=== PATIENT | male | born 1995 ===

== ENCOUNTER 2023-02-04 12:34 | Emergency (ER) | payer BC, SELFPAY ==
[2023-02-04 12:44] VITALS: BP 122/80; PULSE 73; RESP 18; TEMP 36.1; O2SAT 99; BMI 25.0
--- NOTE | 2023-02-04 13:10 | ED.BACK ---
HPI - Back Pain/Injury General Time Seen by Provider: 13:11 Date Seen: 02/04/23 Chief Complaint: Back Injury/Pain Stated Complaint: lower back pain Time Seen by Provider: 02/04/23 13:02 Source: patient and RN notes reviewed Mode of arrival: ambulatory Limitations: no limitations History of Present Illness HPI Narrative: Patient is coming in with low back pain that was worse yesterday after lifting at work yesterday. Pain is not radiating down into either leg, no numbness/tingling in legs. Has history of trauma about age 17 when he fell out of a truck, has had some low back pain intermittently since then. Did try ibuprofen without relief. No fevers, no chronic medical conditions. Hurts in the middle and radiates out to both sides of upper to mid lumbar area. Position changes hurt. Related Data Previous Rx's Medication Instructions Recorded cyclobenzaprine 10 mg tablet 10 mg PO TID PRN muscle spasm #30 02/04/23 tabs naproxen 500 mg tablet 500 mg PO BID #20 tabs 02/04/23 Allergies Allergy/AdvReac Type Severity Reaction Status Date / Time No Known Drug Allergies Allergy Verified 02/04/23 12:43 PFSH PFSH Social History Smoking Status: Former smoker Do you use any of these nicotine containing products: None Second hand tobacco smoke exposure: No How often do you have a drink containing alcohol: never How often do you have six or more drinks on one occasion: Never AUDIT-C Alcohol total score: 0 Non-prescribed substance use: denies use service: No Exam Const: Vital Signs, click to edit/add: Vital Signs - 24 hr 02/04/23 12:44 Temperature 97 F L Pulse Rate [Pulse Oximeter] 73 Respiratory Rate 18 Blood Pressure [Ri ght Upper Arm] 122/80 Pulse Oximetry 99 Oxygen Delivery Me thod Room Air 28-year-old male is alert interactive no apparent distress. Does make position changes slowly and seems mildly uncomfortable. Is able to stand. Gait normal into ED. No midline tenderness, no visible changes of his skin. Some mild paraspinous tenderness in the upper to mid lumbar area bilaterally. Has diminished flexion extension rotation of his back due to his complaint of pain. Neurovascular of his lower extremities intact, normal strength throughout his lower extremities. No evidence of any radiculopathic features based on history or exam. Documenting provider has reviewed patient's vital signs: yes Course Course Hospital Course: Given his remote history of possible back injury in intermittent symptoms since then, will do plain lumbar films. There is no evidence that this is radiculopathic based on his exam or symptoms and thus do not think he needs any emergent neuro imaging. Neuro imaging indeed is not indicated at this time. Vital Signs Vital signs: Initial Vital Signs Temperature 97 F L 02/04/23 12:44 Temperature Source Temporal Artery Scan 02/04/23 12:44 Pulse Rate 73 02/04/23 12:44 Pulse Rhythm Regular 02/04/23 12:44 Respiratory Rate 18 02/04/23 12:44 Blood Pressure 122/80 02/04/23 12:44 Blood Pressure Mean 94 02/04/23 12:44 Blood Pressure Position Sitting 02/04/23 12:44 Pulse Oximetry 99 02/04/23 12:44 Oxygen Delivery Method Room Air 02/04/23 12:44 Vital Signs Temperature 97 F L 02/04/23 12:44 Pulse Rate 73 02/04/23 12:44 Respiratory Rate 18 02/04/23 12:44 Blood Pressure 122/80 02/04/23 12:44 Pulse Oximetry 99 02/04/23 12:44 Oxygen Delivery Method Room Air 02/04/23 12:44 Temperature 97 F L 02/04/23 12:44 Pulse Rate 73 02/04/23 12:44 Respiratory Rate 18 02/04/23 12:44 Blood Pressure 122/80 02/04/23 12:44 Pulse Oximetry 99 02/04/23 12:44 Oxygen Delivery Method Room Air 02/04/23 12:44 MDM - Back Pain/Injury Imaging Data XR lumbar spine: Attestation: I have reviewed the pertinent imaging results. Radiologist's impression: Patient: LLOYD ROJO Facility:?[facility] Patient ID:?[id number] Site Patient ID:?[id number]. Site :?[id number] Study:?XRay Spine Lumbar 2 VIEWS-02/04/2023 1:54:24 PM Ordering Physician:Bethel Hodges Final Report: INDICATION: LOW BACK PAIN. TECHNIQUE: Lumbar spine 2 view. COMPARISON: None. FINDINGS: Bones: Alignment is normal. No fractures or significant bone lesions. Joints: Disc spaces and facets are unremarkable. Soft tissues: Unremarkable. Dictated by Junie Butts MD @ 02/04/2023 2:20:04 PM (Electronic Signature) Critical Care Time Critical Care Time Critical Care Time: No Discharge Plan Discharge Clinical Impression: Acute lumbar back pain Patient Disposition: Home, Self-Care Condition: Stable Instructions: Acute Low Back Pain (ED) Additional Instructions: Tylenol 1000 mg 3 times a day baseline for pain. Use Naprosyn and Flexeril per prescription instructions. If the Flexeril makes you tire sedated, you may only be able to use it at bedtime. Note given to be off work the next couple days. Idea is relative rest. Can try ice on your low back moving to heat after the next couple of days. If ongoing back symptoms, do recommend follow up in clinic and consider physical therapy referral which can be obtained from the clinic. Activity Level: Activity as Tolerated Prescriptions: New naproxen 500 mg tablet 500 mg PO BID Qty: 20 0RF cyclobenzaprine 10 mg tablet 10 mg PO TID PRN (Reason: muscle spasm) Qty: 30 0RF Rx Instructions: no driving or operating machinery if this medication makes you sedated/tired Follow Up/Referrals: Provider,Not a Local [Primary Care Provider] - Stand Alone Forms: [facility] Info Instructions
--- NOTE | 2023-02-04 13:15 | CRLHL7_ITS ---
For Patients: As a result of the Cures Act, medical imaging exams and procedure reports are released immediately into your electronic medical record. You may view this report before your referring provider. If you have questions, please contact your health care provider. INDICATION: LOW BACK PAIN. TECHNIQUE: Lumbar spine 2 view. COMPARISON: None. FINDINGS: Bones: Alignment is normal. No fractures or significant bone lesions. Joints: Disc spaces and facets are unremarkable. Soft tissues: Unremarkable. Dictated by Junie Butts MD @ 02/04/2023 2:20:04 PM (Electronically Signed)
== END 2023-02-04 14:47 | disposition home or self-care (01) ==
PROVIDERS: Emergency Provider Family Medicine
DX: M54.50 Low back pain, unspecified (principal)
CPT/HCPCS: 72100; 99283; 99284

== ENCOUNTER 2023-07-28 06:24 | Emergency (ER) | payer OTHER, SELFPAY ==
[2023-07-28 06:32] VITALS: BP 123/73; PULSE 81; RESP 16; TEMP 37.1; O2SAT 98; BMI 25.5
[2023-07-28] MEDS: KETOROLAC 10 MG TABLET PO (07:08)
[2023-07-28] MEDS: CYCLOBENZAPRINE HCL 10 MG TABLET PO (07:08)
[2023-07-28] MEDS: predniSONE 10 MG TABLET 40 MG PO (07:08)
--- NOTE | 2023-07-28 07:11 | ED_ITS ---
HPI - General Adult General Chief complaint: Back Injury/Pain Stated complaint: Lower back pain Time Seen by Provider: 07/28/23 06:40 Source: patient Mode of arrival: ambulatory Limitations: no limitations History of Present Illness HPI narrative: 28-year-old male presents the emergency department with bilateral low back pain that started 2 days ago. No trauma or injury. No loss of bowel or bladder function. No fever. Pain is bilateral paraspinal muscle low back area, does not radiate. No weakness in the legs, no radicular-type pain. Similar presentation in January, no reviewed. X-rays were performed at that time, benign. He tried taking 400 mg of ibuprofen twice in the last 2 days with no significant long-term improvement in his symptoms. Has not tried Tylenol. He did not follow up with his primary care provider as recommended after last visit, has never done physical therapy. No prior history of back surgeries. No other areas of pain. No skin changes. Pain does worsen slightly with deep breath but stays in the low back area. No shortness of breath. Past medical history benign per his report, no major long-term health problems are long-term medications. No allergies. Nonsmoker. ROS notable for the back pain as described above, otherwise negative for generalized, urinary, other musculoskeletal, neurological or respiratory changes. Related Data Previous Rx's Medication Instructions Recorded cyclobenzaprine 10 mg tablet 10 mg PO BID PRN muscle spasm #20 07/28/23 tabs ketorolac 10 mg tablet 10 mg PO Q6H PRN pain 5 days #20 07/28/23 tabs Allergies Allergy/AdvReac Type Severity Reaction Status Date / Time No Known Drug Allergies [facility] Ver[facility] 07/28/23 06:31 [facility] Social History Smoking Status: Former smoker Do you use any of these nicotine containing products: None Second hand tobacco smoke exposure: No How often do you have a drink containing alcohol: never How often do you have six or more drinks on one occasion: Never AUDIT-C Alcohol total score: 0 Non-prescribed substance use: denies use service: No Exam Const: Vital Signs, click to edit/add: Vital Signs - 24 hr 07/28/23 06:32 Temperature 98.8 F Pulse Rate [Pulse Oximeter] 81 Respiratory Rate 16 Blood Pressure [Ri ght Upper Arm] 123/73 Pulse Oximetry 98 Oxygen Delivery Me thod Room Air Documenting provider has reviewed patient's vital signs: yes Common normals: no apparent distress General appearance: comfortable and well kempt Orientation/consciousness: Yes awake Other: Polite and cooperative. HENMT: Common normals: normocephalic Head and scalp: normocephalic Face and sinus: normal facial exam Mouth: oral and palatal mucosa normal Throat: posterior oropharynx normal Eye: Common normals: conjunctivae normal General eye: normal appearance of both eyes Conjunctiva: conjunctiva(e) normal Neck & C-Spine: Common normals: full ROM and no lymphadenopathy Chest: Common normals: inspection of chest normal Resp: Common normals: normal respiratory effort, no use of accessory muscles and clear to auscultation bilaterally Effort & inspection: able to speak in complete sentences Auscultation: clear to auscultation bilaterally Cardio: Common normals: regular rate, regular rhythm, S1 normal heart sound, S2 normal heart sound and no murmurs Rate: regular rate Rhythm: regular rhythm Heart sounds: S1 normal and S2 normal : Common normals: no CVA tenderness Bladder/kidney exam: no CVA tenderness Back & Pelvis: Common normals: no CVA tenderness, thoracic and lumbar spine normal to inspection and straight leg raise negative bilaterally Other: No point bony tenderness to the thoracic or lumbar spine. There is paraspinal muscle tenderness along L4, 5 and S1. Bilateral but slightly worse on the left. Spondylosis testing is negative. Straight leg lift is negative. Normal muscle strength in the flexors, extensors proximal and distal in the legs. Normal sensation. Extremity: Common normals: normal to inspection, full ROM and normal capillary refill Neuro: Sensorium/orientation: awake Sensory exam: extremities (Normal, bilateral legs) Motor exam: strength 5/5 throughout Psych: Appearance: well kempt Attitude: engaged Mood and affect: euthymic mood Insight: insight good Judgement: judgment good Skin: Common normals: no rashes or lesions noted General skin exam: no rashes or lesions noted Course Course ED Course: Bilateral back pain suspicious of muscular etiology without any alarming symptoms of urinary changes, radiculopathy, weakness, bowel or bladder control issues. Patient has already had x-rays done within the last 6 months which were non revealing any has no history of trauma. Exam reassuring. Recommended symptom control. Will give prednisone 40 mg p.o. x1. Begin Toradol 10 mg q.i.d.. Flexeril 10 mg p.o. x1 now and 10 mg at bedtime p.r.n.. Work note given for today. Encouraged follow-up with primary care provider for physical therapy referral. Alarm symptoms reviewed that would warrant ED presentation. Vital Signs Vital signs: Initial Vital Signs Temperature 98.8 F 07/28/23 06:32 Temperature Source Temporal Artery Scan 07/28/23 06:32 Pulse Rate 81 07/28/23 06:32 Pulse Rhythm Regular 07/28/23 06:32 Respiratory Rate 16 07/28/23 06:32 Blood Pressure 123/73 07/28/23 06:32 Blood Pressure Mean 89 07/28/23 06:32 Pulse Oximetry 98 07/28/23 06:32 Oxygen Delivery Method Room Air 07/28/23 06:32 Vital Signs Temperature 98.8 F 07/28/23 06:32 Pulse Rate 81 07/28/23 06:32 Respiratory Rate 16 07/28/23 06:32 Blood Pressure 123/73 07/28/23 06:32 Pulse Oximetry 98 07/28/23 06:32 Oxygen Delivery Method Room Air 07/28/23 06:32 Temperature 98.8 F 07/28/23 06:32 Pulse Rate 81 07/28/23 06:32 Respiratory Rate 16 07/28/23 06:32 Blood Pressure 123/73 07/28/23 06:32 Pulse Oximetry 98 07/28/23 06:32 Oxygen Delivery Method Room Air 07/28/23 06:32 Medications Administered Medications: Generic Name Dose Route Start Last Admin Trade Name Dionicioq PRN Reason Stop Dose Admin Acetaminophen 1,000 mg 07/28/23 07:06 07/28/23 07:13 Acetaminophen 500 Mg Tablet PO 07/28/23 07:07 1,000 mg ONCE ONE Administration Cyclobenzaprine HCl 10 mg 07/28/23 07:03 07/28/23 07:08 Cyclobenzaprine Hcl 10 Mg Tablet PO 07/28/23 07:04 10 mg ONCE ONE Administration Ketorolac Tromethamine 10 mg 07/28/23 07:03 07/28/23 07:08 Ketorolac 10 Mg Tablet PO 07/28/23 07:04 10 mg ONCE ONE Administration Prednisone 40 mg 07/28/23 07:03 07/28/23 07:08 Prednisone 10 Mg Tablet PO 07/28/23 07:04 40 mg ONCE ONE Administration Discharge Plan Discharge Clinical Impression: Strain of lumbar region Patient Disposition: Home, Self-Care Condition: Stable Instructions: Low Back Strain (ED) Additional Instructions: As we discussed, though does not seem to be any problem with the bones, discs or nerves of your spine. This is good news. Your pain seems to be coming from pulled muscles. This is usually the result of repetitive lifting or an imbalance of strength between your back muscles and your abdominal core. You would benefit significantly from a course of physical therapy. Your primary care doctor can place a referral for this. Sometimes your insurance does not require a referral and you can schedule physical therapy at any local physical therapy Center. You would have to check with your insurance company and or primary care provider. This would help reduce the number of flares of your back pain that you are getting. I have given you a dose of prednisone, a common anti-inflammatory medication that will hopefully help get you better faster. In the future, proper dosing of ibuprofen is 600 mg which is 3 tablets every 6 hours for someone of your age and size for pain. I am going to give you a medication called Toradol instead which is similar to ibuprofen but works even better for muscular type pain. You will take 1 tablet every 6 hours for the next few days and then reduce to just as needed. Once you are no longer taking the Toradol, you may go back to using ibuprofen. I also recommend Tylenol 1000 mg every 6 hours. You may take Tylenol with either ibuprofen or the Toradol as they are from different families. Most find it helpful to alternate between the Tylenol and Toradol every few hours for better pain control. I am also given you a prescription for Flexeril, a muscle relaxant. This may cause sleepiness. He will be given a dose here in the emergency room today, but I am hoping that things improved for you that you do not need another dose until bedtime tonight. I would recommend you use this at bedtime for the next few nights as it will help you sleep. For most, heat is better than ice for this pain. Consider taking a hot shower before bedtime and or using a heating pad. Muscle rubs like icy Hot can also be helpful and you may use these in addition to the prescribed medications with no negative consequences. We typically recommend you come to the emergency department for this type of pain if you have loss of bowel or bladder control accompanied by her back pain, back pain with high fever over 100.4, new trauma or injury, or severe weakness in your legs. You have been given a note off of work today but you should be able to return tomorrow. Activity Level: Activity as Tolerated Discharge Diet: Regular Prescriptions: New ketorolac 10 mg tablet 10 mg PO Q6H PRN (Reason: pain) 5 Days Qty: 20 0RF cyclobenzaprine 10 mg tablet 10 mg PO BID PRN (Reason: muscle spasm) Qty: 20 0RF Follow Up/Referrals: Provider,Not a Local [Referring] - Stand Alone Forms: [employer] [facility] Info Instructions
[2023-07-28] MEDS: ACETAMINOPHEN 500 MG TABLET 1000 MG PO (07:13)
--- OUTSIDE RECORDS SUMMARY | 2023-07-28 07:16 | XMS_ITS | Clinical Summary ---
Author Name Unknown Organization [facility] Address [place], [place] [address] Care Team Providers Care Assistant Restaurant General Manager Name Role Phone Kandi Cheung Primary Care Provider Allergies No known active allergies Medications No known medications Active Problems Problem Noted Date Diagnosed Date Anxiety and depression 12/26/2022 Attention deficit disorder with hyperactivity(31 4.01) 09/18/2008 Resolved Problems Problem Noted Date Diagnosed Date Resolved Date Adjustment disorder with depressed mood 09/18/2008 12/26/2022 Encounters Date Type Department Care Team Description 04/30/2023 4:00 PM CDT Office Visit [facility] [address] [place] [phone] Taylor Love, [facility] Failed Appointment from Last 3 Months Immunizations Name Administration Dates Next Due AMB Influenza, IIV4 PF (=>6 mos Flulaval,Fluzone Fluarix)(Flu Clinic Only) 04/15/2014 COVID-19 vaccine (EcoStartBio NTech 30mcg/0.3mL) 12YO+ HOME-SUCROSE PF, MDV 02/04/2022 DTaP 02/24/2003, 8,1997,05/31,1997 HIB-HepB (Comvax) 03/22/1998,1997,04/01/19 97 Hepatitis A (Peds) 12/23/2011,10/25/2008 Human Papilloma Virus Vaccine 09/09/2014, 014,12/23/2011 Inactivated Polio Vaccine 03/27/2003,,1997,04/01 MMR 02/22/2003,03/22/1998 Meningococcal Vaccine (Menactra) 10/25/2008 Meningococcal Vaccine (Menveo) 04/25/2014 Tdap 10/25/2008,10/16/2007 Varicella Vaccine 10/25/2008,03/22/1998 Family History Medical History Relation Name Comments Good Health Father Unknown Maternal Grandfather Unknown Maternal Grandmother Diabetes Mother Questionable hi story? Unknown Paternal Grandfather Unknown Paternal Grandmother Relation Name Status Comments Father Alive Maternal Grandfather Maternal Grandmother Mother Alive Paternal Grandfather Paternal Grandmother Social History Tobacco Use Types Packs/Day Years Used Date Smoking Tobacco: Never Smokeless Tobacco: Never Tobacco Cessation:Counseling Given: No Alcohol Use Standard Drinks/Week Comments Yes 0 (1 standard drink = 0.6 oz pur e alcohol) occassionally PHQ-2 Answer Date Recorded PHQ-2 TOTAL SCORE 2 03/11/2023 Social Connections Answer Date Recorded Frequency of Communication with Friends and Fami ly Not on file 03/29/2022 Sex and Gender Information Value Date Recorded Sex Assigned at Not on file Gender Identity Not on file Sexual Orientation Not on file Obstetrics History Last Filed Vital Signs Vital Sign Reading Time Taken Comments Blood Pressure 113/68 12/26/2022 3:50 PM CDT Pulse 86 12/26/2022 3:50 PM CDT Temperature 36.4 ??C (97.6 ??F) 06/10/2017 10:[address] Respiratory Rate - - Oxygen Saturation 97% 12/26/2022 3:50 PM CDT Inhaled Oxygen Concentration - - Weight 67.2 kg (148 lb 3.2 oz) 12/26/2022 3:50 P M CDT Height 167 cm (5' 5.75) 03/29/2022 3:49 PM CDT Body Mass Index 24.1 03/29/2022 3:49 PM CDT Plan of Treatment Health Maintenance Due Date Last Done Comments Tetanus booster 10/25/2018 10/25/2008, 10/16/2007 COVID-19 vaccine series ( season) 2023 02/04/2022, 07/25/2021 Influenza for age 9-49 02/28/2023 04/15/2014 BMI (ht and wt on same day) for age 18+ 03/29/2023 03/29/2022, 06/10/2017, 10/06/2015 Depression screening for age 12+ 03/10/2024 03/10/2023, 12/26/2022, 04/01/2022, Additional history exists Tdap Completed 10/25/2008, 10/16/2007 HPV series for age 9-26 Completed 09/10/19 15, 04/25/2014, 12/23/2011 HIV for age 15-65 Completed 03/29/2022, 06/10/2017 Hepatitis C screening for age 18-79 Completed 03/29/2022 Pneumococcal series for age 6-64 Aged Out No longer eligible based on patient's age to complete this topic Care Teams Assistant Restaurant General Manager Relationship Specialty Start Date End Date Kandi Cheung PA [address] [place] [phone] PCP - General Physician Forklift Picker 05/05/23
== END 2023-07-28 07:21 | disposition home or self-care (01) ==
LOC: ED 07:15
PROVIDERS: Emergency Provider Family Medicine; PCP Physician Assistant Medical
DX: S39.012A Strain of muscle, fascia and tendon of lower back, initial encounter (principal)
CPT/HCPCS: 99283; A9270; J7512